=== PATIENT | male | born 1960 | race Caucasian/White ===

== ENCOUNTER 2021-10-24 14:50 | Emergency (ER) | payer OTHER ==
[2021-10-24 15:19] VITALS: BP 137/89; PULSE 97; TEMP 97.8; BMI 29.1
[2021-10-24] MEDS ORDERED: ACETAMINOPHEN 325 MG TABLET (FP) PO ONE (15:30)
[2021-10-24] MEDS ORDERED: ACETAMINOPHEN 325 MG TABLET (FP) ONE (15:32)
== END 2021-10-24 16:35 | disposition home or self-care (01) ==
LOC: FER 14:50
DX: S70.11XA Contusion of right thigh, initial encounter (principal); W20.8XXA Other cause of strike by thrown, projected or falling object, initial encounter
CPT/HCPCS: 99283-25